=== PATIENT | female | born 1960 | race Caucasian/White ===

== ENCOUNTER 2023-08-31 08:16 | Outpatient (RCR) | payer OTHER | END 2023-09-25 | disposition home or self-care (01) | LOC: MKS.ESL.PT | DX: M25.562 Pain in left knee (principal) ==

== ENCOUNTER 2023-11-28 10:55 | Outpatient (RCR) | payer OTHER | END 2023-11-28 10:56 | LOC: MKS.ESL.PT 10:55 | DX: M25.562 Pain in left knee (principal) ==

== ENCOUNTER 2023-11-28 10:55 | Outpatient (RCR) | payer OTHER | END 2023-11-28 10:56 | LOC: MKS.ESL.PT 10:55 | DX: M25.562 Pain in left knee (principal) ==